=== PATIENT | male | born 1965 | race Caucasian/White ===

== ENCOUNTER → 2021-06-05 09:50 | Outpatient (CLI) | payer OTHER, SELFPAY ==
[2021-06-05 10:22] LABS: COVID19 -Nasal RAPID POSITIVE (Negative)
== END ==
PROVIDERS: Referring Provider Physician Assistant; Visit Provider Physician Assistant
DX: U07.1 COVID-19 (principal); R05.9 Cough, unspecified; R19.7 Diarrhea, unspecified; R50.9 Fever, unspecified; R51.9 Headache, unspecified; Z20.822 Contact with and (suspected) exposure to COVID-19
CPT/HCPCS: 87635

== ENCOUNTER → 2021-11-13 18:19 | Outpatient (CLI) | payer OTHER, SELFPAY ==
--- NOTE | 2021-11-13 | DI.MRI.S_ITS ---
PROCEDURE: MR SHOULDER LT WO CON INDICATIONS: Pain in left shoulder TECHNIQUE: Noncontrast oblique coronal T2 fast spin echo with fat saturation, oblique sagittal T1 spin echo and T2 fast spin echo with fat saturation, axial T1 spin echo and T2 fast spin echo with fat saturation through the shoulder. COMPARISON: None. FINDINGS: Image quality: Excellent. Rotator cuff: Distal supraspinatus and infraspinatus tendinosis is seen. Low-grade bursal surface partial thickness tear involving distal supraspinatus extending to musculotendinous junction is also seen. Low-grade partial-thickness tear involving superior fibers of distal subscapularis is noted. No full-thickness rotator cuff tendon rupture. Sagittal images demonstrate no significant muscle atrophy. Mild edema involving superior and lateral portion of deltoid muscle is seen near musculotendinous junction which may indicate muscle contusion/strain. Bones and bursae: No bone marrow contusions or fractures. Moderate acromioclavicular joint osteoarthritic changes are seen with joint space narrowing, subchondral sclerosis and cyst formation and prominent downward osteophyte formation depressing the musculotendinous junction of supraspinatus. No significant subacromial subdeltoid bursal fluid is seen. Capsule and soft tissues: Signal abnormality and contour irregularity involving superior anterior labrum at 12 to 2 o'clock position is seen. The long head of the biceps tendon demonstrates normal location and morphology. The rotator interval appears normal, without fibrosis. The coracohumeral ligament is normal in thickness. IMPRESSION: 1. Distal supraspinatus and infraspinatus tendinosis. Low-grade bursal surface partial thickness tear involving distal supraspinatus extending to musculotendinous junction. Low-grade partial-thickness tear involving superior fibers of distal subscapularis. No full-thickness rotator cuff tendon rupture. No muscle atrophy. 2. Mild edema within superior lateral portion of deltoid muscle near musculotendinous junction which may represent low-grade muscle strain/contusion. 3. Moderate acromioclavicular joint osteoarthritis. No fracture or dislocation. 4. Suggestion of superior anterior labral tear at 12 to 2 o'clock position. Dictated by: Shantanu Mejia M.D. on 11/14/2021 at 8:46 Approved by: Shantanu Mejia M.D. on 11/14/2021 at 8:51
== END ==
PROVIDERS: PCP Nurse Practitioner; Referring Provider Registered Nurse; Visit Provider Registered Nurse
DX: M75.112 Incomplete rotator cuff tear or rupture of left shoulder, not specified as traumatic (principal); M19.012 Primary osteoarthritis, left shoulder; M25.512 Pain in left shoulder
CPT/HCPCS: 73221

== ENCOUNTER 2022-12-23 08:07 | Day surgery (SDC) | payer OTHER, SELFPAY ==
[2022-12-23] VITALS (7 sets, daily range): BP systolic 75–148; BP diastolic 49–86; PULSE 75–110; RESP 12–18; TEMP 36.1–36.4; O2SAT 92–98; BMI 29.8
--- NOTE | 2022-12-23 | PATH_ITS ---
[facility] Accession Number: [id number] No. of containers..01 Tissue . 01 Material submitted: . colon - COLON . 01 Clinical history: . COLON INFLAMMATION R/O CANCER 25 . 01 Diagnosis: Colon, Biopsy: Colonic mucosa with ulcer. No dysplasia, malignancy or infectious organisms identified. See comment. MRV 01/04/2023 2257 Local . 01 Comment: The histologic features raise a differential diagnosis including drug-induced ulceration (NSAIDs, etc.), ischemia, stercoral ulceration and prolapse, as well as infectious etiologies among other possibilities. . 01 Electronically signed: . Fatuma Blackwell MD, Pathologist NPI- [id number] . 01 Gross description: . COLON: Received in formalin is 2 fragment(s) of vo, soft tissue measuring 0.2 x 0.2 x 0.1 cm to 0.2 x 0.2 x 0.1 cm submitted entirely in 1 cassette(s) /AAY 12/29/2022 1205 Local . 01 Pathologist provided ICD-10: K52.89 . 01 CPT . 140608 Specimen Comment: A courtesy copy of this report has been sent to [phone] Performed at: 01 [facility] [address] [place] [address] [address], [place], [place] [id number] MD Enzo Navarro MD Phone: [phone]
[2022-12-23] MEDS: LACTATED RINGERS 1,000 ML 84 ML IV (08:41)
--- NOTE | 2022-12-23 09:48 | P.OP.COLON_ITS ---
Operative Date/Time/Diagnoses Date of procedure: 12/23/22 Pre-op diagnosis: See indication and findings Procedure & Clinicians Study performed: Colonoscopy Indications: Abdominal discomfort with history of diverticulitis status post colon resection. Need for colorectal cancer screening. Surgeon: Rachell Carlin Procedure Notes Procedure in detail: Procedure in detail: After informed consent was obtained the patient was placed in left lateral decubitus position.? The video colonoscope was introduced the rectum slowly advanced cecum.? Preparation was good.? On slow withdrawal mucosa was carefully examined.? The scope was removed.? The patient tolerated procedure well.? Blood loss none Complications none Sedation mac Findings 1. [place] colonic anastomosis at 20 cm.? Appears to be side to side.? Normal appearance. 2. Colonic ulcer measuring 4 mm with some surrounding inflammation at 25 cm.? Gentle biopsies were taken. 3.? Otherwise negative colonoscopy to cecum. Raimundo is having minimal discomfort and I would just like to wait for pathology to return particularly given his allergy to Cipro and Flagyl.
--- NOTE | 2023-01-08 12:15 | PM.HP.1 ---
History of Present Illness History of Present Illness Date Patient Seen: 12/23/22 Chief complaint: Dx Colonoscopy Narrative: Upper abdominal discomfort and history of diverticulitis. Need for colorectal cancer screening PFSH Social History household members: spouse Smoking Status: Never smoker alcohol intake: current Meds Home Medications and Allergies Home Medications Medication Instructions Recorded Confirmed Type atorvastatin 10 mg PO DAILY 06/05/21 12/23/22 History lisinopril 10 mg PO BID 06/05/21 12/23/22 History aspirin 81 mg tablet,delayed 81 mg PO DAILY 12/23/22 12/23/22 History release Allergies Allergy/AdvReac Type Severity Reaction Status Date / Time No Known Drug Allergies Allergy Verified 12/23/22 08:36 Exam Vital Signs (past 8 hours): Oxygen Delivery Method Room Air Narrative Exam Narrative: Oropharynx free of lesions Chest clear to auscultation percussion Cardiac exam reveals no S3 or murmur Assessment & Plan Assessment & Plan narrative: History of diverticulitis with resection now with abdominal discomfort. Need for colorectal cancer screening. Risks benefits and alternatives have been explained.
== END 2022-12-23 10:10 | disposition home or self-care (01) ==
PROVIDERS: PCP Nurse Practitioner; Referring Provider Internal Medicine Gastroenterology; Visit Provider Internal Medicine Gastroenterology
PROC: 0DJD8ZZ Inspection of Lower Intestinal Tract, Via Natural or Artificial Opening Endoscopic (ICD-10-PCS; CPT 45378; principal; 2022-12-23 09:30)
DX: R10.9 Unspecified abdominal pain (principal); Z87.19 Personal history of other diseases of the digestive system; Z90.49 Acquired absence of other specified parts of digestive tract; K63.3 Ulcer of intestine
CPT/HCPCS: 45380; J2704

== ENCOUNTER → 2024-02-15 13:51 | Outpatient (CLI) | payer OTHER, SELFPAY ==
--- NOTE | 2024-02-15 13:52 | DI.RAD.S_ITS ---
PROCEDURE: XR LUMBAR SPINE MIN 4V INDICATIONS: BACK PAIN TECHNIQUE: 5 views of the lumbar spine were acquired, including bilateral oblique views. COMPARISON: None. FINDINGS: Bones: 5 nonrib-bearing vertebrae are present. There is normal bony alignment. No vertebral body compression fractures. No suspicious bony lesions. Lower lumbar spine disc space narrowing and hypertrophic facet joints Soft tissues: Overlying bowel gas pattern is normal. No suspicious soft tissue calcifications. Oblique images: No pars defects. IMPRESSION: Lower lumbar spine degenerative disc disease and arthropathy. No pars defects Approved by: Chase Bledsoe M.D. on 02/15/2024 at 14:19
== END ==
PROVIDERS: PCP Nurse Practitioner; Referring Provider Physical Medicine & Rehabilitation; Visit Provider Physical Medicine & Rehabilitation
DX: M47.816 Spondylosis without myelopathy or radiculopathy, lumbar region (principal); M51.369 Other intervertebral disc degeneration, lumbar region without mention of lumbar back pain or lower extremity pain; M54.9 Dorsalgia, unspecified
CPT/HCPCS: 72110

== ENCOUNTER → 2024-06-30 15:59 | Outpatient (CLI) | payer OTHER, SELFPAY ==
--- NOTE | 2024-06-30 16:00 | DI.MRI.S_ITS ---
PROCEDURE: MR LUMBAR SPINE WO CON INDICATIONS: PROGRESSIVE SPINAL STENOSIS TECHNIQUE: Noncontrast sagittal T1 spin echo and T2 fast echo, sagittal STIR, and T2 fast spin echo through the lumbar spine. In cases with scoliosis, additional coronal T2 fast spin echo may be performed. COMPARISON: [facility], CR, XR LUMBAR SPINE MIN 4V, 02/15/2024, 13:16. FINDINGS: Image quality: Excellent. Alignment and Curvature: There is normal bony alignment. Bone Marrow: Marrow is of normal overall signal. No acute vertebral body compression fractures. Spinal Cord: Conus medullaris terminates at the L1 level. Visualized cord demonstrates normal signal and size. Paraspinous Soft Tissues: No paravertebral masses. T12-L1: Normal appearance. L1-L2: Normal appearance. L2-L3: Normal appearance. L3-L4: Disc desiccation and mild height loss. Mild circumferential disc bulge. Mild facet arthropathy and ligamentum flavum hypertrophy. Minor narrowing of the right lateral recess. L4-L5: Disc desiccation and mild disc height loss. Mild circumferential disc osteophyte. Mild facet and ligamentum flavum hypertrophy. Mild right lateral recess narrowing. L5-S1: Disc desiccation and mild disc height loss. Broad-based posterior disc bulge. Mild facet arthropathy. Mild bilateral foraminal narrowing mainly due to disc bulge. IMPRESSION: Mild lower lumbar disc and facet degeneration. Mild right lateral recess narrowing, mainly at L4-5 which may affect the right L5 nerve root. Correlate clinically. Dictated by: Brigida Meier M.D. on 06/30/2024 at 22:14 Approved by: Brigida Meier M.D. on 06/30/2024 at 22:21
== END ==
LOC: MRI 15:59
PROVIDERS: PCP Nurse Practitioner; Referring Provider Physical Medicine & Rehabilitation; Visit Provider Physical Medicine & Rehabilitation
DX: M47.26 Other spondylosis with radiculopathy, lumbar region (principal); M51.369 Other intervertebral disc degeneration, lumbar region without mention of lumbar back pain or lower extremity pain; M48.061 Spinal stenosis, lumbar region without neurogenic claudication; M47.27 Other spondylosis with radiculopathy, lumbosacral region; M51.379 Other intervertebral disc degeneration, lumbosacral region without mention of lumbar back pain or lower extremity pain; M48.07 Spinal stenosis, lumbosacral region
CPT/HCPCS: 72148

== ENCOUNTER 2024-07-28 12:44 | Emergency (ER) | payer OTHER, SELFPAY ==
[2024-07-28] VITALS (10 sets, daily range): BP systolic 117–193; BP diastolic 72–94; PULSE 61–94; RESP 16; TEMP 36.8; O2SAT 95–99; BMI 29.8
[2024-07-28 14:01] LABS: Add Manual Diff / Slide Review NO; Basophils Absolute Auto 100 /uL (0-100); Basophils Percent Auto 1.2 % (0-2); Eosinophils Absolute Auto 400 /uL (0-450); Eosinophils Percent Auto 4.1 % (2-4); Hematocrit 45.4 % (41-53); Hemoglobin 15.3 g/dL (13.5-17.5); Lymphocytes Absolute Auto 2300 /uL (1100-4500); Lymphocytes Percent Auto 25.5 % (25-40); Mean Corpuscular HGB Conc 33.7 % (30-36); Mean Corpuscular Hemoglobin 30.9 PG (26-34); Mean Corpuscular Volume 91.8 fL (80-100); Monocytes Absolute Auto 700 /uL (0-900); Monocytes Percent Auto 7.4 % (3-14); Neutrophils Absolute Auto 5500 /uL (1500-7000); Neutrophils Percent Auto 61.8 % (50-75); Platelet Count 410 X10^3/uL (150-400); Red Blood Cell Count 4.95 X10^6/uL (4.5-5.9); Red Cell Distribution Width 13.5 % (11.6-14.8)
[2024-07-28 14:06] LABS: Alanine Aminotransferase 36 IU/L (<50); Albumin 4.8 g/dL (3.5-5.0); Albumin Globulin Ratio 1.3 (1.0-2.8); Alkaline Phosphatase 106 U/L (38-126); Aspartate Aminotransferase 31 IU/L (17-59); BUN Creatinine Ratio 17.7 (6-22); Bilirubin Total 0.7 mg/dL (0.2-1.3); Blood Urea Nitrogen 17 mg/dL (9-20); Calcium 9.7 mg/dL (8.4-10.2); Carbon Dioxide 21 mmol/L (22-32); Chloride 103 mmol/L (98-107); Estimated Glomerular Filt Rate > 60 mL/min (>60); Globulin 3.6 g/dL (1.7-4.1); Glucose 94 mg/dL (70-100); HEMOLYSIS < 15 (0-50); Lipase 82 U/L (23-300); Potassium 4.3 mmol/L (3.4-5.1); Sodium 136 mmol/L (137-145); Total Protein 8.4 g/dL (6.3-8.2)
[2024-07-28 14:07] LABS: Lactate (Lactic Acid) 0.9 mmol/L (0.7-2.1)
--- NOTE | 2024-07-28 14:57 | PC.NURSE ---
Patient here in department for no bowel movement in eight days, hes been unable to eat very much reports that he vomits a little in his mouth when he tries. Has been able to drink water and keep it down. Patient reports no current pain or nausea, abdomen is nontender. Bowel sounds are active in the RUQ, all other quadrants are hypoactive
--- NOTE | 2024-07-28 15:54 | DI.CT.S_ITS ---
PROCEDURE: CT ABDOMEN PELVIS W CON INDICATIONS: ab pain with vomiting with colon resections TECHNIQUE: After the administration of intravenous contrast, axial sections acquired from the lung bases to the pubic symphysis. Coronal and sagittal reformats were performed. For radiation dose reduction, the following was used: automated exposure control, adjustment of mA and/or kV according to patient size. COMPARISON: None. FINDINGS: Image quality: Diagnostic. Lower Chest: No significant findings. ABDOMEN: Liver: No solid mass. Gallbladder: No radiopaque gallstones or wall thickening. Biliary ducts: No biliary dilation. Pancreas: No ductal dilation. Spleen: Size is within normal limits. Adrenal Glands: No adrenal nodules. Kidneys and Ureters: No hydronephrosis. No solid mass. No complex renal cystic lesion which requires follow up. Stomach and Bowel: Partial colectomy. There is mild wall thickening and pericolonic fat stranding associated with a diverticulum of the distal descending colon (series 2, image 87). Normal colonic caliber. Peritoneum: No abnormal intraperitoneal fluid. No free air. Ventral Wall: No significant ventral hernia. Abdominal Nodes: No retroperitoneal or mesenteric adenopathy by size criteria. Vessels: Aorta and inferior vena cava are normal in size. PELVIS: Pelvic Organs: Unremarkable. Bladder: No bladder wall thickening, accounting for underdistention. Pelvic Nodes: No enlarged lymph nodes. Miscellaneous: Small inguinal hernias containing fat. Bones: No aggressive osseous abnormality. IMPRESSION: Uncomplicated diverticulitis of the distal descending colon. Dictated by: Michael Acosta M.D. on 07/28/2024 at 16:31 Approved by: Michael Acosta M.D. on 07/28/2024 at 16:34
--- NOTE | 2024-07-28 16:43 | ED.ABDPAIN ---
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 He was having some gas and he was passing some liquid stool. It is not bloody. He has had decrease in appetite feels full no nausea or vomiting. No fever chills or chest pain. He previously had diverticulitis with an abscess and then he accidentally swallowed a grill brush bursal and had a perforation Related Data Home Medications Medication Instructions Recorded Confirmed aspirin 81 mg tablet,delayed 81 mg PO DAILY 12/23/22 06/19/24 release escitalopram oxalate 10 mg tablet 10 mg PO DAILY 02/16/24 06/19/24 atorvastatin 10 mg tablet 10 mg PO DAILY 06/19/24 06/19/24 donepezil 10 mg tablet 10 mg PO DAILY 06/19/24 06/19/24 lisinopril 10 mg tablet 10 mg PO DAILY 06/19/24 06/19/24 Previous Rx's Medication Instructions Recorded meloxicam 15 mg tablet 15 mg PO DAILY #30 tabs 06/19/24 ciprofloxacin HCl 500 mg tablet 500 mg PO BID #14 tabs 07/28/24 (Cipro) metronidazole 500 mg tablet 500 mg PO BID 7 days #14 tabs 07/28/24 metronidazole 500 mg tablet 500 mg PO Q8H 7 days #21 tabs 07/28/24 Allergies Allergy/AdvReac Type Severity Reaction Status Date / Time No Known Drug Allergies Allergy Verified 06/19/24 08:05 Patient History Medical History Spinal ataxia Facet arthropathy, lumbar Lumbar radiculopathy Social History household members: spouse Smoking Status: Never smoker alcohol intake: current Smoking Status: Never smoker alcohol intake frequency: 0-2 drinks per day Exam Initial Vital Signs Initial Vital Signs: Vital Signs Temperature 98.3 F 07/28/24 12:56 Pulse Rate 83 07/28/24 12:56 Respiratory Rate 16 07/28/24 12:56 Blood Pressure 193/93 H 07/28/24 12:56 Pulse Oximetry 98 07/28/24 12:56 Oxygen Delivery Method Room Air 07/28/24 12:56 GENERAL: Alert pleasant 58-year-old male and in no acute distress. HEENT: Head atraumatic,EOMI, pupils reactive, face symmetric, moist mucous membranes CARDIOVASCULAR: Regular rate and rhythm without murmurs, rubs or gallops. RESPIRATORY: Breath sounds equal bilaterally, no wheezes rales or rhonchi. ABDOMEN: Soft, no significant distention decreased bowel sounds all around left lower quadrant tender EXTREMITIES: Normal range of motion, no clubbing or edema. Neurovascularly intact NEUROLOGICAL: Alert and oriented x4.Normal gait and speech. Cranial nerves II through XII grossly intact. SKIN: Warm, dry, no laceration, no petechiae, no rashes or lesions. Course Orders Ordered: ED Orders 07/28/24 13:10 CBC Auto Diff [Complete Blood Count AUTO DIFF] Stat CMP [Comprehensive Metabolic Panel] Stat Lactate (Lactic Acid) Stat Lipase Stat 07/28/24 15:54 CT abdomen pelvis w con Stat Discontinued Medications Ciprofloxacin (Ciprofloxacin 250 Mg Tablet) 500 mg PO NOW ONE Stop: 07/28/24 18:11 Metronidazole (Metronidazole 500 Mg Tablet) 500 mg PO NOW ONE Stop: 07/28/24 18:11 Ondansetron HCl (Ondansetron 4 Mg/2 Ml Inj) 4 mg IV NOW ONE Stop: 07/28/24 13:56 Last Admin: 07/28/24 14:56 Dose: Not Given Documented By: JASON Vital Signs Vital signs: Vital Signs - 8 hr 07/28/24 12:56 07/28/24 14:14 07/28/24 14:14 Temperature 98.3 F Pulse Rate 83 77 Respiratory Rate 16 Blood Pressure 193/93 H 138/94 H Pulse Oximetry 98 95 Oxygen Delivery Method Room Air Room Air 07/28/24 14:30 07/28/24 14:31 07/28/24 14:31 Temperature Pulse Rate 78 73 Respiratory Rate Blood Pressure 129/75 Pulse Oximetry 95 95 Oxygen Delivery Method 07/28/24 15:00 07/28/24 15:00 07/28/24 15:30 Temperature Pulse Rate 61 71 Respiratory Rate Blood Pressure 121/75 Pulse Oximetry 99 97 Oxygen Delivery Method Room Air 07/28/24 15:30 07/28/24 16:01 07/28/24 16:03 Temperature Pulse Rate 94 H 70 Respiratory Rate Blood Pressure 117/74 Pulse Oximetry 95 97 Oxygen Delivery Method 07/28/24 16:03 07/28/24 16:30 07/28/24 18:12 Temperature Pulse Rate 74 Respiratory Rate Blood Pressure 121/72 138/81 Pulse Oximetry 95 Oxygen Delivery Method MDM - Abdominal Pain Lab Data 07/28/24 13:10 07/28/24 13:10 Labs: Lab Results 07/28/24 Range/Units 13:10 WBC 9.0 (4.5-11.0) X10^3/uL RBC 4.95 (4.5-5.9) X10^6/uL Hgb 15.3 (13.5-17.5) g/dL Hct 45.4 (41-53) % MCV 91.8 (80-100) fL MCH 30.9 (26-34) PG MCHC 33.7 (30-36) % RDW 13.5 (11.6-14.8) % Plt Count 410 H (150-400) X10^3/uL Neut % (Auto) 61.8 (50-75) % Lymph % (Auto) 25.5 (25-40) % [place] % (Auto) 7.4 (3-14) % Eos % (Auto) 4.1 H (2-4) % Baso % (Auto) 1.2 (0-2) % Neut # (Auto) 5500 (5537-1948) /uL Lymph # (Auto) 2300 (7670-3089) /uL [place] # (Auto) 700 (0-900) /uL Eos # (Auto) 400 (0-450) /uL Baso # (Auto) 100 (0-100) /uL Sodium 136 L (137-145) mmol/L Potassium 4.3 (3.4-5.1) mmol/L Chloride 103 (98-107) mmol/L Carbon Dioxide 21 L (22-32) mmol/L BUN 17 (9-20) mg/dL Creatinine 0.96 (0.66-1.25) mg/dL Estimated GFR > 60 (>60) mL/min BUN/Creatinine Ratio 17.7 (6-22) Glucose 94 (70-100) mg/dL Lactate 0.9 (0.7-2.1) mmol/L Calcium 9.7 (8.4-10.2) mg/dL Total Bilirubin 0.7 (0.2-1.3) mg/dL AST 31 (17-59) IU/L ALT 36 (<50) IU/L Alkaline Phosphatase 106 (38-126) U/L Total Protein 8.4 H (6.3-8.2) g/dL Albumin 4.8 (3.5-5.0) g/dL Globulin 3.6 (1.7-4.1) g/dL Albumin/Globulin Ratio 1.3 (1.0-2.8) Lipase 82 (23-300) U/L Point of care testing: Urine Dip Bedside Urine Glucose Negative Bedside Urine Bilirubin - Negative Bedside Urine Ketone - Negative Urine Specific Josephine 1.015 Bedside Urine Occult Blood - Negative Bedside Urine pH 6.0 Bedside Urine Protein - Negative Bedside Urine Urobilinogen - Negative Bedside Urine Nitrite - Negative Bedside Urine Leukocytes - Negative Esterase Imaging Data CT scan - abdomen/pelvis: Radiologist's Impression: PROCEDURE: XR CHEST 1V INDICATIONS: chest pain TECHNIQUE: One view of the chest was acquired. COMPARISON: None. FINDINGS: Surgical changes and devices: None. Lungs and pleura: Lungs are clear. No pleural effusions or pneumothorax. Mediastinum: Mediastinal contours appear normal. Heart size is normal. Bones and chest wall: No suspicious bony lesions. Overlying soft tissues appear unremarkable. IMPRESSION: No acute cardiopulmonary abnormality is seen. Dictated by: Kit Ribera M.D. on 07/28/2024 at 9:36 MDM Narrative Medical decision making narrative: Patient is a 58-year-old male history of diverticulitis colectomy prior perforation presenting today with left lower quadrant pain decreased bowel movement ongoing for the last 8 days. He was tender on exam without significant peritoneal signs. He has no significant distention Differential diagnosis includes perforation obstruction diverticulitis Blood work has been reviewed CBC no leukocytosis or anemia CMP no significant electrolyte abnormality no DEB Bilirubin liver enzymes lipase all within normal limits CT abdomen pelvis shows diverticulitis with out complicating Patient tender in left lower quadrant CT confirms uncomplicated diverticulitis with out leukocytosis or lab abnormality. He is having some gas and bowel movement no evidence of obstruction. Not requiring anything here for pain. He was given 1st dose of Cipro and Flagyl here in the ED. strict return precautions given Discharge Plan Departure Patient Disposition: Home Clinical Impression: Diverticulitis Instructions: DI for Diverticulitis Activity Restrictions/Additional Instructions: *You have been diagnosed with diverticulitis *What to do: At this time you do have diverticulitis. Increase fluid may consider low-fiber diet *Continue to take medications as directed Cipro 500 mg twice a day for 7 days Flagyl 500 mg 3 times a day for 7 days *Follow up with your primary care provider in 2-3 days or call [phone] *Return to ER if you should have increasing pain bloody stool persistent vomiting or any new, worsening or concerning symptoms Prescriptions: New metronidazole 500 mg tablet 500 mg PO BID 7 Days Qty: 14 0RF ciprofloxacin HCl [Cipro] 500 mg tablet 500 mg PO BID Qty: 14 0RF metronidazole 500 mg tablet 500 mg PO Q8H 7 Days Qty: 21 0RF No Action aspirin 81 mg Tablet,Delayed Release (Dr/Ec) 81 mg PO DAILY escitalopram oxalate 10 mg tablet 10 mg PO DAILY lisinopril 10 mg tablet 10 mg PO DAILY atorvastatin 10 mg tablet 10 mg PO DAILY donepezil 10 mg tablet 10 mg PO DAILY meloxicam 15 mg tablet 15 mg PO DAILY Qty: 30 2RF Referrals: Pinky Fang ARNP [Primary Care Provider] - Stand Alone Forms: Patient Portal/API/Survey
== END 2024-07-28 18:12 | disposition home or self-care (01) ==
PROVIDERS: Emergency Provider Emergency Medicine; PCP Nurse Practitioner
DX: K57.92 Diverticulitis of intestine, part unspecified, without perforation or abscess without bleeding (principal); R07.9 Chest pain, unspecified
CPT/HCPCS: 36415; 74177; 80053; 81003; 83605; 83690; 85025; 99283; 99284; Q9967

== ENCOUNTER 2024-08-01 13:43 | Outpatient (CLI) | payer OTHER, SELFPAY ==
[2024-08-01] VITALS (8 sets, daily range): BP systolic 120–158; BP diastolic 66–84; PULSE 65–74; RESP 16–20; TEMP 36.7; O2SAT 95–99
[2024-08-01] MEDS: MIDAZOLAM 2 MG/2 ML VIAL IV (16:05)
[2024-08-01] MEDS: iopamidoL 15 ML VIAL 3 ML INJ (16:09)
[2024-08-01] MEDS: BUPIVACAINE 0.5% (PF) 10 ML VIAL 5 ML INJ (16:09)
[2024-08-01] MEDS: LIDOCAINE 1% 20 ML 5 ML INJ (16:09)
--- NOTE | 2024-08-01 16:29 | PM.PROC.IR.1 ---
Date/Time/Diagnoses Date of procedure: 08/01/24 Time of procedure: 16:29 Pre-procedure diagnosis: 1. FACET ARTHROPATHY Post-procedure diagnosis: same Procedure Notes Procedure: 1. BILATERAL- L4, L5 and S1 DIAGNOSTIC MB BLOCKS with LA Anesthetic Indications: Alessandro is referred by KHANH Fang for treatment of Bilateral Axial LBP. Physician: Jd Castano Total Fluoroscopy time (seconds): 11 Total sedation minutes: 19 Complications: none Procedure in detail & Post-procedure care: DESCRIPTION OF PROCEDURE Fluoroscopically guided, contrast-controlled bilateral L4, L5 and S1 medial branch blocks with 0.5cc of 0.5% Marcaine. Following review of allergy and review of potential side effects and complications, including, but not necessarily limited to, infection, allergic reaction, local tissue breakdown, nerve injury, paralysis, stroke and possible , the patient indicated that the patient understood and agreed to proceed. An informed consent document was signed by the patient, witnessed by a nurse, and placed in the patient's chart. After review of previous anaesthesic history and IV conscious sedation the patient was deemed safe to proceed with today's procedure with IV conscious sedation as ASA class II designation. Safety time-out was performed to confirm patient ID, procedure to be performed and site of procedure. IV sedation was accomplished with a combination of 2mg of Versed was administered by the RN after DO order, titrated to patient comfort during the course of the procedure while the patient remained responsive to all verbal commands In the prone position, following sterile prep and drape of the lumbar region, the right L4, L5 and S1 anatomical location of the medial branch of the dorsal ramus was identified fluoroscopically. Subsequently an anesthetic skin wheal using 1% lidocaine solution was initiated at each of the anatomical spots. Subsequently then a 22-gauge 3.5-inch spinal needle was atraumatically introduced and advanced under fluoroscopic guidance at each of the corresponding sites at the right L4, L5 and S1 MB. After negative aspiration, 0.2cc of Isovue 200 was injected, confirming placement without vascular or intrathecal uptake. Subsequently then 0.5cc of 0.5% Marcaine solution was injected at each of the corresponding sites at the right L4, L5 and S1 medial branch locations. The identical procedure was replicated on the left. The patient tolerated the procedure well without signs or symptoms of complications prior to transfer to the recovery area continued monitoring without incident. Post-procedure, the patient was monitored initiating provocative activities to measure the amount of relief from block of the facetogenic pain. The patient reported a VAS of 7 prior to the procedure and a post-procedure VAS of 1. It has been a pleasure to assist in the diagnostic and therapeutic care of your patient. POST OP INSTRUCTIONS The patient was provided with a Pain Log to complete over the next several hours and subsequent days prior to the patient's follow up with the ordering physician. If the patient has maintenance engineer relief to the solution applied, then they may be a candidate for medial branch rhizotomy. The patient is aware, was provided, once again, with a Pain Log and will follow up with the referring physician for review and clinical correlation
== END 2024-08-01 16:43 | disposition home or self-care (01) ==
LOC: RAD 13:43
PROVIDERS: PCP Nurse Practitioner; Referring Provider Physical Medicine & Rehabilitation; Visit Provider Physical Medicine & Rehabilitation
DX: M47.816 Spondylosis without myelopathy or radiculopathy, lumbar region (principal); M47.817 Spondylosis without myelopathy or radiculopathy, lumbosacral region
CPT/HCPCS: 64493; 64494; 99152; J2250

== ENCOUNTER 2024-10-24 07:08 | Outpatient (CLI) | payer OTHER, SELFPAY ==
[2024-10-24] VITALS (8 sets, daily range): BP systolic 121–169; BP diastolic 71–87; PULSE 53–71; RESP 14–19; TEMP 36.5; O2SAT 96–99
[2024-10-24] MEDS: MIDAZOLAM 2 MG/2 ML VIAL IV (08:19)
[2024-10-24] MEDS: LIDOCAINE 2% INJ MDV 20ML 5 ML INJ (08:28)
[2024-10-24] MEDS: LIDOCAINE 1% 20 ML 5 ML INJ (08:28)
[2024-10-24] MEDS: iopamidoL 15 ML VIAL 3 ML INJ (08:28)
--- NOTE | 2024-10-24 08:41 | P.PCN_ITS ---
Date/Time/Diagnoses Date of procedure: 10/24/24 Time of procedure: 08:41 Pre-procedure diagnosis: 1. FACET ARTHROPATHY Post-procedure diagnosis: same Procedure Notes Procedure: 1. BILATERAL- L4, L5 and S1 DIAGNOSTIC MB BLOCKS with SA Anesthetic Indications: Alessandro is referred by KHANH Fang for treatment of Bilateral Axial LBP. Physician: Jd Casatno Total Fluoroscopy time (seconds): 12 Total sedation minutes: 17 Complications: none Procedure in detail & Post-procedure care: DESCRIPTION OF PROCEDURE Fluoroscopically guided, contrast-controlled bilateral L4, L5 and S1 medial branch blocks with 0.5cc of 2% Lidocaine. Following review of allergy and review of potential side effects and complications, including, but not necessarily limited to, infection, allergic reaction, local tissue breakdown, nerve injury, paralysis, stroke and possible , the patient indicated that the patient understood and agreed to proceed. An informed consent document was signed by the patient, witnessed by a nurse, and placed in the patient's chart. After review of previous anaesthesic history and IV conscious sedation the patient was deemed safe to proceed with today's procedure with IV conscious sedation as ASA class II designation. Safety time-out was performed to confirm patient ID, procedure to be performed and site of procedure. IV sedation was accomplished with a combination of 2mg of Versed was administered by the RN after DO order, titrated to patient comfort during the course of the procedure while the patient remained responsive to all verbal commands In the prone position, following sterile prep and drape of the lumbar region, the right L4, L5 and S1 anatomical location of the medial branch of the dorsal ramus was identified fluoroscopically. Subsequently an anesthetic skin wheal using 1% lidocaine solution was initiated at each of the anatomical spots. Subsequently then a 22-gauge 3.5-inch spinal needle was atraumatically introduced and advanced under fluoroscopic guidance at each of the corresponding sites at the right L4, L5 and S1 MB. After negative aspiration, 0.2cc of Isovue 200 was injected, confirming placement without vascular or intrathecal uptake. Subsequently then 0.5cc of 2% Lidocaine solution was injected at each of the corresponding sites at the right L4, L5 and S1 medial branch locations. The identical procedure was replicated on the left. The patient tolerated the procedure well without signs or symptoms of complications prior to transfer to the recovery area continued monitoring without incident. Post-procedure, the patient was monitored initiating provocative activities to measure the amount of relief from block of the facetogenic pain. The patient reported a VAS of 7 prior to the procedure and a post-procedure VAS of 1. It has been a pleasure to assist in the diagnostic and therapeutic care of your patient. POST OP INSTRUCTIONS The patient was provided with a Pain Log to complete over the next several hours and subsequent days prior to the patient's follow up with the ordering physician. If the patient has body maker machine setter relief to the solution applied, then they may be a candidate for medial branch rhizotomy. The patient is aware, was provided, once again, with a Pain Log and will follow up with the referring physician for review and clinical correlation
== END 2024-10-24 08:39 | disposition home or self-care (01) ==
LOC: RAD 07:09
PROVIDERS: PCP Nurse Practitioner; Referring Provider Physical Medicine & Rehabilitation; Visit Provider Physical Medicine & Rehabilitation
DX: M47.816 Spondylosis without myelopathy or radiculopathy, lumbar region (principal); M47.817 Spondylosis without myelopathy or radiculopathy, lumbosacral region
CPT/HCPCS: 64493; 64494; 99152; J2250